=== PATIENT | female | born 1970 | race Caucasian/White ===

== ENCOUNTER 2017-06-19 16:56 | Emergency (ER) | payer MEDICAID ==
[~2017-06-19] VITALS: Ht 167.6 cm; Wt 63.0 kg
[2017-06-19] MEDS ORDERED: IBUPROFEN 400MG TABLET PO ONE (19:45)
[2017-06-19 22:05] VITALS: BP 123/56
== END 2017-06-19 22:45 | disposition home or self-care (01) ==
LOC: ER 16:56
DX: N76.0 Acute vaginitis (principal); J02.9 Acute pharyngitis, unspecified; E05.90 Thyrotoxicosis, unspecified without thyrotoxic crisis or storm; I10 Essential (primary) hypertension; E06.3 Autoimmune thyroiditis; Z87.891 Personal history of nicotine dependence; Z90.49 Acquired absence of other specified parts of digestive tract; Z90.710 Acquired absence of both cervix and uterus
CPT/HCPCS: 81025; 99283

== ENCOUNTER 2017-12-19 19:39 | Emergency (ER) | payer MEDICAID ==
[~2017-12-19] VITALS: Ht 165.1 cm; Wt 105.5 kg
[2017-12-19 21:58] LABS: CLARITY URINE CLEAR (CLEAR); COLOR URINE YELLOW (YELLOW); KETONES URINE NEGATIVE (NEGATIVE); LEUKOCYTE ESTERASE URINE 3+ (NEGATIVE); NITRITE URINE NEGATIVE (NEGATIVE); OCCULT BLOOD URINE 2+ (NEGATIVE); PH URINE 6.5 (4.5-8.0); PROTEIN URINE NEGATIVE (NEGATIVE); SPECIFIC GRAVITY URINE 1.016 (1.005-1.030); UROBILINOGEN URINE 0.2 E.U./dL (0.2-1.0)
[2017-12-19] MEDS ORDERED: IBUPROFEN 800MG TABLET PO ONE (22:15)
[2017-12-20] MEDS ORDERED: LIDOCAINE HCL/PF 1% 10 MG/ML 5ML VIAL IJ NR (01:15)
[2017-12-20] MEDS ORDERED: LIDOCAINE HCL 1% 20ML VIAL (Pyxis) INJ INFIL ONE (01:15)
[2017-12-20] MEDS ORDERED: CEFTRIAXONE SODIUM 1 G/VIAL IM ONE (01:15)
[2017-12-20 01:59] VITALS: BP 119/79
[2017-12-23 04:11] LABS: CHLAMYDIA TRACHOMATIS NAA Negative (Negative); NEISSERIA GONORRHOEAE NAA Negative (Negative)
== END 2017-12-20 02:04 | disposition home or self-care (01) ==
LOC: ER 21:07
DX: N39.0 Urinary tract infection, site not specified (principal); I10 Essential (primary) hypertension; E06.3 Autoimmune thyroiditis; Z87.891 Personal history of nicotine dependence; Z90.49 Acquired absence of other specified parts of digestive tract; Z90.710 Acquired absence of both cervix and uterus; Z98.51 Tubal ligation status
CPT/HCPCS: 76830; 76856; 81003; 81025; 87086; 87491; 87591; 96372; 99285; J0696; J3490; Z7610

== ENCOUNTER 2018-03-10 23:40 | Emergency (ER) | payer MEDICAID ==
[~2018-03-10] VITALS: Ht 170.2 cm; Wt 98.0 kg
[2018-03-11] MEDS ORDERED: ASPIRIN 81MG TABLET PO ONE (00:45)
[2018-03-11 01:11] LABS: BASOPHILS % 0.9 % (0.0-2.0); EOSINOPHILS % 6.3 % (0.0-5.0); HEMOGLOBIN. 13.2 g/dL (12.0-16.0); LYMPHOCYTES % 14.6 % (20.0-50.0); MEAN CORPUSCULAR VOLUME 94.8 fL (81.0-99.0); MEAN PLATELET VOLUME 7.6 fl (7.4-10.4); MONOCYTES % 7.7 % (2.0-8.0); NEUTROPHILS % 70.5 % (40.0-76.0); PLATELET 270 x1000/uL (130-400); RED BLOOD CELL COUNT 4.12 mill/uL (4.2-5.4); RED CELL DISTRIBUTION WIDTH 12.6 % (11.6-14.6)
[2018-03-11 01:13] LABS: CHLORIDE 105 mEq/L (98-107)
[2018-03-11 01:16] LABS: PROTHROMBIN TIME 10.6 sec (9.4-11.6)
[2018-03-11 02:00] LABS: CLARITY URINE CLEAR (CLEAR); COLOR URINE YELLOW (YELLOW); KETONES URINE NEGATIVE (NEGATIVE); LEUKOCYTE ESTERASE URINE TRACE (NEGATIVE); NITRITE URINE NEGATIVE (NEGATIVE); OCCULT BLOOD URINE TRACE (NEGATIVE); PH URINE 6.5 (4.5-8.0); PROTEIN URINE NEGATIVE (NEGATIVE); SPECIFIC GRAVITY URINE 1.014 (1.005-1.030)
[2018-03-11 03:35] VITALS: BP 108/69
== END 2018-03-11 04:00 | disposition home or self-care (01) ==
LOC: ER 23:40 → CANBEDREQ 03-11 04:04
DX: R10.9 Unspecified abdominal pain (principal); K08.89 Other specified disorders of teeth and supporting structures; R11.2 Nausea with vomiting, unspecified; I10 Essential (primary) hypertension; F17.200 Nicotine dependence, unspecified, uncomplicated; L65.9 Nonscarring hair loss, unspecified; E06.3 Autoimmune thyroiditis; Z90.49 Acquired absence of other specified parts of digestive tract; Z88.6 Allergy status to analgesic agent
CPT/HCPCS: 36415; 71045; 80053; 81003; 81025; 83880; 84484; 85025; 85610; 85730; 93005; 99285; Z7610

== ENCOUNTER 2018-05-30 10:59 | Inpatient (IN) | payer MEDICAID ==
[~2018-05-30] VITALS: Ht 167.6 cm; Wt 105.7 kg
[2018-05-30 13:22] LABS: BASOPHILS % 1.1 % (0.0-2.0); EOSINOPHILS % 14.5 % (0.0-5.0); HEMATOCRIT. 40.1 % (36.0-48.0); HEMOGLOBIN. 13.7 g/dL (12.0-16.0); LYMPHOCYTES % 25.2 % (20.0-50.0); MEAN CORPUSCULAR HEMOGLOBIN 32.4 pg (28.0-32.0); MEAN CORPUSCULAR VOLUME 95.3 fL (81.0-99.0); MEAN PLATELET VOLUME 7.6 fl (7.4-10.4); MONOCYTES % 8.6 % (2.0-8.0); NEUTROPHILS % 50.6 % (40.0-76.0); PLATELET 291 x1000/uL (130-400); RED BLOOD CELL COUNT 4.21 mill/uL (4.2-5.4); RED CELL DISTRIBUTION WIDTH 12.5 % (11.6-14.6)
[2018-05-30 13:32] LABS: CHLORIDE 102 mEq/L (98-107)
[2018-05-30] MEDS ORDERED: IPRATROPIUM/ALBUTEROL 0.5-3(2.5)MG/3ML NEB INH PRN (16:00)
[2018-05-30] MEDS ORDERED: DOCUSATE SODIUM 100MG CAPSULE PO PRN (16:00)
[2018-05-30] MEDS ORDERED: MAGNESIUM/ALUMINUM HYDROXIDE/SIMETHICONE 30ML UDC PO PRN (16:00)
[2018-05-30] MEDS ORDERED: CLONIDINE 0.1MG TABLET PO PRN (16:00)
[2018-05-30] MEDS ORDERED: GUAIFENESIN 200MG/10ML SUGAR FREE UDC PO PRN (16:00)
[2018-05-30 16:44] LABS: CHLORIDE 102 mEq/L (98-107)
[2018-05-30 17:23] LABS: CLARITY URINE CLEAR (CLEAR); COLOR URINE YELLOW (YELLOW); KETONES URINE NEGATIVE (NEGATIVE); LEUKOCYTE ESTERASE URINE 1+ (NEGATIVE); NITRITE URINE NEGATIVE (NEGATIVE); OCCULT BLOOD URINE TRACE (NEGATIVE); PH URINE 5.5 (4.5-8.0); PROTEIN URINE NEGATIVE (NEGATIVE); SPECIFIC GRAVITY URINE 1.018 (1.005-1.030); UROBILINOGEN URINE 0.2 E.U./dL (0.2-1.0)
[2018-05-30 17:26] LABS: UCG SCREEN NEGATIVE
[2018-05-30 17:50] LABS: METHADONE URINE SCREEN NEGATIVE (NEGATIVE)
[2018-05-30 17:51] LABS: *AMPHETAMINES SCREEN URINE NEGATIVE (NEGATIVE); *BARBITURATES SCREEN URINE NEGATIVE (NEGATIVE); *BENZODIAZEPINES SCREEN URINE NEGATIVE (NEGATIVE); *COCAINE SCREEN URINE NEGATIVE (NEGATIVE); CANNABINOID URINE SCREEN NEGATIVE (NEGATIVE); OPIATES URINE SCREEN PRESUMTIVE POSITIVE (NEGATIVE); PHENCYCLIDINE URINE SCREEN NEGATIVE (NEGATIVE)
[2018-05-30 21:20] VITALS: BP 132/73
[2018-05-30 21:30] VITALS: BP 132/73
[2018-05-30] MEDS: ENOXAPARIN 40MG/0.4ML SYR SUBCUT SCH (21:55)
[2018-05-31] VITALS (8 sets, daily range): BP systolic 118–154; BP diastolic 72–94
[2018-05-31] MEDS ORDERED: AMLO10TA80 MT (01:23)
[2018-05-31] MEDS ORDERED: ENAL20TA MT (01:25)
[2018-05-31] MEDS ORDERED: LEVO50TA8 MT (01:26)
[2018-05-31] MEDS ORDERED: LIOT5TAB8 MT (01:27)
[2018-05-31] MEDS ORDERED: IBUP-2030 MT (01:28)
[2018-05-31] MEDS ORDERED: LORA10TA7 MT (01:29)
[2018-05-31] MEDS: ACETAMINOPHEN 325MG TABLET PO PRN ×3 (06:17→23:09)
[2018-05-31 07:07] LABS: HEMATOCRIT. 39.4 % (36.0-48.0); HEMOGLOBIN. 13.3 g/dL (12.0-16.0); MEAN CORPUSCULAR HEMOGLOBIN 31.8 pg (28.0-32.0); MEAN CORPUSCULAR VOLUME 94.5 fL (81.0-99.0); PLATELET 258 x1000/uL (130-400); RED BLOOD CELL COUNT 4.17 mill/uL (4.2-5.4); RED CELL DISTRIBUTION WIDTH 12.5 % (11.6-14.6)
[2018-05-31 07:48] LABS: CHLORIDE 105 mEq/L (98-107)
[2018-05-31 08:02] LABS: CREATINE KINASE 40 IU/L (26-192); CREATINE KINASE MB FRACTION < 1.0 ng/mL (0.5-3.6); HDL CHOLESTEROL 45 mg/dL (40-59); LDL CHOLESTEROL 99 mg/dL (5-100)
[2018-05-31] MEDS: ASPIRIN 81MG EC TABLET PO SCH (08:34)
[2018-05-31] MEDS: HYDROCODONE/ACETAMINOPHEN 5/325MG TABLET PO PRN (08:34)
[2018-05-31 14:32] LABS: PLATELET ESTIMATE NORMAL
[2018-05-31] MEDS ORDERED: REGADENOSON 0.4 MG/5 ML IV ONE (14:45)
[2018-05-31] MEDS: LEVOTHYROXINE SODIUM 50MCG TABLET PO SCH (15:26)
[2018-05-31] MEDS: ENOXAPARIN 40MG/0.4ML SYR SUBCUT SCH (20:32)
[2018-06-01] VITALS: BP 147/82
[2018-06-01 04:00] VITALS: BP 133/80
[2018-06-01] MEDS: LEVOTHYROXINE SODIUM 50MCG TABLET PO SCH (05:49)
[2018-06-01] MEDS: LIOTHYRONINE SODIUM 5MCG TABLET PO SCH (05:50)
[2018-06-01 08:00] VITALS: BP 127/84
[2018-06-01] MEDS: HYDROCODONE/ACETAMINOPHEN 5/325MG TABLET PO PRN ×2 (08:21→13:01)
[2018-06-01] MEDS: ONDANSETRON HCL 4MG/2ML INJ IV PRN ×2 (08:22→14:51)
[2018-06-01] MEDS: AMLODIPINE 2.5MG TABLET PO SCH (09:00)
[2018-06-01] MEDS: ASPIRIN 81MG EC TABLET PO SCH (09:00)
[2018-06-01] MEDS ORDERED: REGADENOSON 0.4 MG/5 ML IV ONE (10:07)
[2018-06-01 12:00] VITALS: BP 129/80
[2018-06-01 16:00] VITALS: BP 146/88
[2018-06-01] MEDS ORDERED: MORPHINE SULFATE 4 MG/ML CPJ (NOT FOR IM USE) IV PRN (17:00)
[2018-06-01] MEDS: DEXT 5%/0.45% NACL 1000ML 1,000 ML IV SCH (18:00)
[2018-06-01] MEDS: ACETAMINOPHEN 325MG TABLET PO PRN (18:01)
[2018-06-01] MEDS: DOCUSATE SODIUM 250MG CAPSULE PO SCH (18:01)
[2018-06-01] MEDS: METOCLOPRAMIDE HCL 10MG/2ML VIAL IV SCH (18:01)
[2018-06-01] MEDS: LACTULOSE 20G/30ML UDC PO SCH (18:03)
[2018-06-01 20:00] VITALS: BP 122/74
[2018-06-01 20:26] LABS: HCG SCREEN NEGATIVE
[2018-06-01] MEDS: ENOXAPARIN 40MG/0.4ML SYR SUBCUT SCH (21:45)
[2018-06-02] VITALS: BP 124/65
[2018-06-02] MEDS: METOCLOPRAMIDE HCL 10MG/2ML VIAL IV SCH ×2 (00:20→06:03)
[2018-06-02 04:00] VITALS: BP 117/69
[2018-06-02] MEDS: DEXT 5%/0.45% NACL 1000ML 1,000 ML IV SCH (06:03)
[2018-06-02 06:40] LABS: BASOPHILS % 0.9 % (0.0-2.0); EOSINOPHILS % 4.6 % (0.0-5.0); HEMATOCRIT. 38.9 % (36.0-48.0); HEMOGLOBIN. 13.4 g/dL (12.0-16.0); LYMPHOCYTES % 16.3 % (20.0-50.0); MEAN CORPUSCULAR HEMOGLOBIN 32.5 pg (28.0-32.0); MEAN CORPUSCULAR VOLUME 94.4 fL (81.0-99.0); MEAN PLATELET VOLUME 7.8 fl (7.4-10.4); MONOCYTES % 8.2 % (2.0-8.0); PLATELET 268 x1000/uL (130-400); RED BLOOD CELL COUNT 4.11 mill/uL (4.2-5.4); RED CELL DISTRIBUTION WIDTH 12.4 % (11.6-14.6)
[2018-06-02] MEDS: LIOTHYRONINE SODIUM 5MCG TABLET PO SCH (06:43)
[2018-06-02] MEDS: LEVOTHYROXINE SODIUM 50MCG TABLET PO SCH (06:43)
[2018-06-02 08:00] VITALS: BP 146/82
[2018-06-02 08:32] LABS: CHLORIDE 105 mEq/L (98-107)
[2018-06-02] MEDS: ASPIRIN 81MG EC TABLET PO SCH (08:39)
[2018-06-02] MEDS: AMLODIPINE 2.5MG TABLET PO SCH (08:39)
[2018-06-02] MEDS: LACTULOSE 20G/30ML UDC PO SCH (08:40)
[2018-06-02] MEDS: DOCUSATE SODIUM 250MG CAPSULE PO SCH (08:40)
[2018-06-02 12:00] VITALS: BP 153/91
[2018-06-02] MEDS: ACETAMINOPHEN 325MG TABLET PO PRN (12:33)
[2018-06-02 12:46] VITALS: BP 146/82
== END 2018-06-02 13:30 | disposition home or self-care (01) | DRG 203 ==
LOC: ER 13:14 → 5WST 15:09 → ENRESERV 19:31
PROVIDERS: ADMIT Internal Medicine; ATTEND Internal Medicine
DX: M94.0 Chondrocostal junction syndrome [Tietze] (principal); E06.3 Autoimmune thyroiditis; K59.00 Constipation, unspecified; L65.9 Nonscarring hair loss, unspecified; R79.1 Abnormal coagulation profile; E66.9 Obesity, unspecified; I10 Essential (primary) hypertension; K52.9 Noninfective gastroenteritis and colitis, unspecified; Z88.6 Allergy status to analgesic agent; Z90.49 Acquired absence of other specified parts of digestive tract; Z68.37 Body mass index [BMI] 37.0-37.9, adult; Z98.51 Tubal ligation status; Z82.49 Family history of ischemic heart disease and other diseases of the circulatory system
CPT/HCPCS: 36415; 71045; 78452; 80048; 80061; 80305; 81025; 82550; 82553; 83735; 83880; 84443; 84484; 84703; 85379; 87804; 93005; 93017; 93306; 93970; 99285; A9500; J1650; J2270; J2405; J2765; J2785; J3490

== ENCOUNTER 2018-12-12 08:52 | Emergency (ER) | payer MEDICAID ==
[~2018-12-12] VITALS: Ht 167.6 cm; Wt 105.0 kg
[~2018-12-12 08:52] MED LIST: AMLO10TA80 MT; ENAL20TA MT; IBUP-2030 MT; LEVO50TA8 MT; LIOT5TAB8 MT
[2018-12-12 10:22] LABS: CLARITY URINE TURBID (CLEAR); COLOR URINE YELLOW (YELLOW); KETONES URINE TRACE (NEGATIVE); LEUKOCYTE ESTERASE URINE TRACE (NEGATIVE); NITRITE URINE NEGATIVE (NEGATIVE); OCCULT BLOOD URINE 1+ (NEGATIVE); PROTEIN URINE NEGATIVE (NEGATIVE); SPECIFIC GRAVITY URINE 1.024 (1.005-1.030)
[2018-12-12 10:23] LABS: BASOPHILS % 1.2 % (0.0-2.0); EOSINOPHILS % 12.2 % (0.0-5.0); HEMATOCRIT. 39.3 % (36.0-48.0); HEMOGLOBIN. 13.3 g/dL (12.0-16.0); LYMPHOCYTES % 28.7 % (20.0-50.0); MEAN CORPUSCULAR HEMOGLOBIN 31.9 pg (28.0-32.0); MEAN CORPUSCULAR VOLUME 94.4 fL (81.0-99.0); MEAN PLATELET VOLUME 7.5 fl (7.4-10.4); MONOCYTES % 8.3 % (2.0-8.0); NEUTROPHILS % 49.6 % (40.0-76.0); PLATELET 292 x1000/uL (130-400); RED BLOOD CELL COUNT 4.16 mill/uL (4.2-5.4); RED CELL DISTRIBUTION WIDTH 13.3 % (11.6-14.6)
[2018-12-12 10:25] LABS: CHLORIDE 108 mEq/L (98-107)
[2018-12-12 11:04] VITALS: BP 126/78
== END 2018-12-12 11:13 | disposition home or self-care (01) ==
LOC: ER 09:03
DX: N39.0 Urinary tract infection, site not specified (principal); I10 Essential (primary) hypertension; Z90.710 Acquired absence of both cervix and uterus; Z90.49 Acquired absence of other specified parts of digestive tract; Z88.6 Allergy status to analgesic agent; Z79.899 Other long term (current) drug therapy
CPT/HCPCS: 36415; 80053; 81003; 81025; 83690; 85025; 99283; Z7610

== ENCOUNTER 2019-02-26 19:47 | Emergency (ER) | payer MEDICAID ==
[~2019-02-26] VITALS: Ht 167.6 cm; Wt 105.0 kg
[~2019-02-26 19:47] MED LIST changes: -LIOT5TAB8 MT; +LIOT5TAB9 MT
[2019-02-26 21:11] LABS: CLARITY URINE CLOUDY (CLEAR); COLOR URINE YELLOW (YELLOW); KETONES URINE NEGATIVE (NEGATIVE); LEUKOCYTE ESTERASE URINE 3+ (NEGATIVE); NITRITE URINE NEGATIVE (NEGATIVE); OCCULT BLOOD URINE 2+ (NEGATIVE); PH URINE 8.5 (4.5-8.0); PROTEIN URINE NEGATIVE (NEGATIVE); SPECIFIC GRAVITY URINE 1.014 (1.005-1.030); UROBILINOGEN URINE 0.2 E.U./dL (0.2-1.0)
[2019-02-26 21:15] LABS: BASOPHILS % 1.3 % (0.0-2.0); EOSINOPHILS % 12.3 % (0.0-5.0); HEMATOCRIT. 38.3 % (36.0-48.0); HEMOGLOBIN. 13.1 g/dL (12.0-16.0); LYMPHOCYTES % 31.2 % (20.0-50.0); MEAN CORPUSCULAR HEMOGLOBIN 32.4 pg (28.0-32.0); MEAN PLATELET VOLUME 7.4 fl (7.4-10.4); NEUTROPHILS % 44.2 % (40.0-76.0); PLATELET 255 x1000/uL (130-400); RED BLOOD CELL COUNT 4.03 mill/uL (4.2-5.4); RED CELL DISTRIBUTION WIDTH 12.9 % (11.6-14.6)
[2019-02-26] MEDS ORDERED: IBUPROFEN 800MG TABLET PO ONE (21:45)
[2019-02-26 21:55] VITALS: BP 122/85
== END 2019-02-26 21:56 | disposition home or self-care (01) ==
LOC: ER 19:47
DX: N39.0 Urinary tract infection, site not specified (principal); M19.90 Unspecified osteoarthritis, unspecified site; I10 Essential (primary) hypertension; L65.9 Nonscarring hair loss, unspecified; E06.3 Autoimmune thyroiditis; F17.200 Nicotine dependence, unspecified, uncomplicated; Z90.49 Acquired absence of other specified parts of digestive tract; Z90.710 Acquired absence of both cervix and uterus; Z98.890 Other specified postprocedural states; Z88.5 Allergy status to narcotic agent
CPT/HCPCS: 36415; 76536; 99284

== ENCOUNTER 2019-05-05 11:05 | Emergency (ER) | payer MEDICAID ==
[~2019-05-05] VITALS: Ht 167.6 cm; Wt 91.0 kg
[2019-05-05] MEDS ORDERED: ASPI-1393 PO (11:27)
[2019-05-05] MEDS ORDERED: MAGN250T10 PO (11:27)
[2019-05-05 11:40] LABS: CLARITY URINE CLOUDY (CLEAR); COLOR URINE DARK YELLOW (YELLOW); KETONES URINE TRACE (NEGATIVE); LEUKOCYTE ESTERASE URINE 2+ (NEGATIVE); NITRITE URINE NEGATIVE (NEGATIVE); OCCULT BLOOD URINE 2+ (NEGATIVE); PH URINE 5.5 (4.5-8.0); PROTEIN URINE NEGATIVE (NEGATIVE); SPECIFIC GRAVITY URINE 1.022 (1.005-1.030)
[2019-05-05] MEDS ORDERED: KETOROLAC 30MG/ML VIAL IV STA (14:40)
[2019-05-05] MEDS ORDERED: SODIUM CHLORIDE 0.9% 1,000 ML IV ONE (14:40)
[2019-05-05 15:28] LABS: BASOPHILS % 1.1 % (0.0-2.0); EOSINOPHILS % 12.2 % (0.0-5.0); HEMATOCRIT. 40.3 % (36.0-48.0); HEMOGLOBIN. 13.8 g/dL (12.0-16.0); LYMPHOCYTES % 29.9 % (20.0-50.0); MEAN CORPUSCULAR HEMOGLOBIN 32.3 pg (28.0-32.0); MEAN CORPUSCULAR VOLUME 94.1 fL (81.0-99.0); MEAN PLATELET VOLUME 7.9 fl (7.4-10.4); MONOCYTES % 7.2 % (2.0-8.0); NEUTROPHILS % 49.6 % (40.0-76.0); PLATELET 258 x1000/uL (130-400); RED BLOOD CELL COUNT 4.28 mill/uL (4.2-5.4); RED CELL DISTRIBUTION WIDTH 12.4 % (11.6-14.6)
[2019-05-05 15:35] LABS: INR 1.2; PROTHROMBIN TIME 12.1 sec (9.6-11.0)
[2019-05-05] MEDS ORDERED: CEFTRIAXONE 1 G PREMIX 50 ML IV ONE (15:45)
[2019-05-05 15:46] LABS: CHLORIDE 106 mEq/L (98-107)
[2019-05-05 15:47] LABS: HCG SCREEN NEGATIVE
[2019-05-05 16:10] VITALS: BP 125/74
== END 2019-05-05 16:24 | disposition home or self-care (01) ==
LOC: ER 11:13
DX: N30.90 Cystitis, unspecified without hematuria (principal); M79.605 Pain in left leg; M79.604 Pain in right leg; M79.622 Pain in left upper arm
CPT/HCPCS: 36415; 80053; 81003; 83605; 83690; 84484; 84703; 85025; 85610; 87077; 87086; 93970; 96361; 96365; 96375; 99284; J0696; J1885; J7030

== ENCOUNTER 2019-08-06 21:25 | Emergency (ER) | payer MEDICAID, OTHER ==
[~2019-08-06] VITALS: Ht 167.6 cm; Wt 112.0 kg
[~2019-08-06 21:25] MED LIST changes: +ASPI-1393 PO; +MAGN250T10 PO
[2019-08-06 22:03] VITALS: BP 126/90
== END 2019-08-07 03:38 | disposition left against medical advice (07) ==
LOC: ER 21:25
DX: M79.669 Pain in unspecified lower leg (principal); Z53.21 Procedure and treatment not carried out due to patient leaving prior to being seen by health care provider

== ENCOUNTER 2019-08-07 11:27 | Emergency (ER) | payer OTHER ==
[~2019-08-07] VITALS: Ht 172.7 cm; Wt 75.0 kg
[2019-08-07] MEDS ORDERED: METOCLOPRAMIDE HCL 10MG/2ML VIAL IV ONE (14:15)
[2019-08-07] MEDS ORDERED: KETOROLAC 15MG/ML VIAL IV ONE (14:15)
[2019-08-07] MEDS ORDERED: DIAZEPAM 5 MG/ML 2ML CPJ IV ONE (14:15)
[2019-08-07] MEDS ORDERED: SODIUM CHLORIDE 0.9% 1,000 ML IV ONE (14:15)
[2019-08-07 15:03] LABS: BASOPHILS % 0.7 % (0.0-2.0); EOSINOPHILS % 11.3 % (0.0-5.0); HEMATOCRIT. 39.6 % (36.0-48.0); HEMOGLOBIN. 13.5 g/dL (12.0-16.0); LYMPHOCYTES % 22.8 % (20.0-50.0); MEAN CORPUSCULAR HEMOGLOBIN 32.2 pg (28.0-32.0); MEAN CORPUSCULAR VOLUME 94.3 fL (81.0-99.0); MEAN PLATELET VOLUME 7.8 fl (7.4-10.4); MONOCYTES % 7.1 % (2.0-8.0); NEUTROPHILS % 58.1 % (40.0-76.0); PLATELET 275 x1000/uL (130-400); RED CELL DISTRIBUTION WIDTH 13.2 % (11.6-14.6)
[2019-08-07 15:05] LABS: CHLORIDE 107 mEq/L (98-107)
[2019-08-07 15:17] LABS: CREATINE KINASE 70 IU/L (26-192)
[2019-08-07 16:08] VITALS: BP 123/73
== END 2019-08-07 16:10 | disposition home or self-care (01) ==
LOC: ER 11:37
DX: R51 Headache (principal); M79.18 Myalgia, other site; M79.662 Pain in left lower leg; M79.661 Pain in right lower leg; I10 Essential (primary) hypertension; E03.9 Hypothyroidism, unspecified; Z90.49 Acquired absence of other specified parts of digestive tract; Z79.82 Long term (current) use of aspirin; Z79.899 Other long term (current) drug therapy; Z88.6 Allergy status to analgesic agent
CPT/HCPCS: 36415; 80048; 82550; 85025; 93970; 96374; 96375; 99284; J1885; J2765; J3360; J7030

== ENCOUNTER 2022-05-11 15:37 | Emergency (ER) | payer MEDICAID, OTHER ==
[~2022-05-11] VITALS: Ht 165.1 cm; Wt 112.0 kg
[~2022-05-11 15:37] MED LIST changes: -ASPI-1393 PO; +ASPI-1497 PO; -ENAL20TA MT; +ENAL20TA18 MT; +LIOT5TAB11 MT; -LIOT5TAB9 MT
[2022-05-11 15:47] VITALS: BP 132/84
[2022-05-11] MEDS ORDERED: ASPIRIN 325MG EC TABLET PO NR (22:45)
[2022-05-11 23:12] LABS: *AMPHETAMINES SCREEN URINE NEGATIVE (NEGATIVE); *BARBITURATES SCREEN URINE NEGATIVE (NEGATIVE); *BENZODIAZEPINES SCREEN URINE NEGATIVE (NEGATIVE); *COCAINE SCREEN URINE NEGATIVE (NEGATIVE); CANNABINOID URINE SCREEN NEGATIVE (NEGATIVE); METHADONE URINE SCREEN NEGATIVE (NEGATIVE); OPIATES URINE SCREEN NEGATIVE (NEGATIVE); PHENCYCLIDINE URINE SCREEN NEGATIVE (NEGATIVE)
[2022-05-11 23:24] LABS: BASOPHILS % 1.1 % (0.0-2.0); EOSINOPHILS % 7.6 % (0.0-5.0); HEMATOCRIT. 44.2 % (36.0-48.0); HEMOGLOBIN. 15.1 g/dL (12.0-16.0); LYMPHOCYTES % 27.3 % (20.0-50.0); MEAN CORPUSCULAR HEMOGLOBIN 32.6 pg (28.0-32.0); MEAN CORPUSCULAR VOLUME 95.5 fL (81.0-99.0); MEAN PLATELET VOLUME 7.8 fl (7.4-10.4); MONOCYTES % 7.3 % (2.0-8.0); NEUTROPHILS % 56.7 % (40.0-76.0); PLATELET 324 x1000/uL (130-400); RED BLOOD CELL COUNT 4.63 mill/uL (4.2-5.4); RED CELL DISTRIBUTION WIDTH 13.3 % (11.6-14.6)
[2022-05-11 23:25] LABS: CHLORIDE 102 mEq/L (98-107)
[2022-05-11 23:34] LABS: ETHANOL BLOOD < 10 mg/dL
[2022-05-11] MEDS ORDERED: ASPI-1497 MT (23:53)
== END 2022-05-12 02:00 | disposition home or self-care (01) ==
LOC: ER 15:37
DX: R07.89 Other chest pain (principal); I10 Essential (primary) hypertension; Z90.49 Acquired absence of other specified parts of digestive tract; Z79.899 Other long term (current) drug therapy
CPT/HCPCS: 36415; 71045; 80053; 80305; 80320; 83880; 84484; 85025; 99284; G0480

== ENCOUNTER 2024-08-18 17:24 | Emergency (ER) | payer MEDICAID ==
[~2024-08-18] VITALS: Ht 167.6 cm; Wt 86.1 kg
[~2024-08-18 17:24] MED LIST changes: +ASPI-1497 MT; +ENAL-79 MT; -ENAL20TA18 MT
[2024-08-18 17:33] VITALS: O2SAT 100
[2024-08-18 18:31] LABS: BASOPHILS % 0.9 % (0.0-2.0); EOSINOPHILS % 5.6 % (0.0-5.0); HEMATOCRIT. 40.9 % (36.0-48.0); HEMOGLOBIN. 13.9 g/dL (12.0-16.0); LYMPHOCYTES % 16.3 % (20.0-50.0); MEAN CORPUSCULAR HEMOGLOBIN 33.3 pg (28.0-32.0); MEAN CORPUSCULAR VOLUME 97.7 fL (81.0-99.0); MEAN PLATELET VOLUME 7.2 fl (7.4-10.4); MONOCYTES % 9.8 % (2.0-8.0); NEUTROPHILS % 67.4 % (40.0-76.0); PLATELET 227 x1000/uL (130-400); RED BLOOD CELL COUNT 4.19 mill/uL (4.2-5.4); WHITE BLOOD COUNT 4.2 x1000/uL (4.5-11.0)
[2024-08-18 18:45] LABS: CHLORIDE 104 mEq/L (98-107); SODIUM 140 mEq/L (136-145)
[2024-08-18 18:46] LABS: CALCIUM 9.5 mg/dL (8.7-10.4); CARBON DIOXIDE 30 mEq/L (21-32)
[2024-08-18 18:51] LABS: GLUCOSE 98 mg/dL (70-105); UREA NITROGEN BLOOD 12 mg/dL (9-23)
[2024-08-18 18:52] LABS: TROPONIN I HIGH SENSITIVITY 7 ng/L (3.0-34)
[2024-08-18] MEDS: DIPHENHYDRAMINE 25MG CAPSULE PO ONE (20:30)
[2024-08-18] MEDS: IBUPROFEN 600MG TABLET PO ONE (20:30)
[2024-08-18] MEDS: METOCLOPRAMIDE HCL 10MG TABLET PO ONE (20:30)
[2024-08-18] MEDS ORDERED: IBUP-2029 MT (21:10)
[2024-08-18] MEDS ORDERED: METO-293 MT (21:10)
[2024-08-18] MEDS: DIPHENHYDRAMINE 25MG CAPSULE PO NR (22:20)
[2024-08-18] MEDS: IBUPROFEN 600MG TABLET PO NR (22:21)
[2024-08-18] MEDS: METOCLOPRAMIDE HCL 10MG TABLET PO NR (22:21)
[2024-08-18 22:38] VITALS: BP 140/66; PULSE 84; RESP 16; TEMP 36.78072; O2SAT 100
== END 2024-08-18 22:40 | disposition home or self-care (01) ==
LOC: ER 17:24
DX: G43.909 Migraine, unspecified, not intractable, without status migrainosus (principal); I10 Essential (primary) hypertension; Z79.82 Long term (current) use of aspirin; Z79.890 Hormone replacement therapy; Z88.5 Allergy status to narcotic agent; Z90.49 Acquired absence of other specified parts of digestive tract; Z98.51 Tubal ligation status
CPT/HCPCS: 99284; 70450; 80048; 85025; 84484; 36415; 93005; Q0163; J8597